=== PATIENT | female | born 1985 | race Caucasian/White ===

== ENCOUNTER → 2017-09-07 | Outpatient (CLI) | payer BC, OTHER | END | disposition home or self-care (01) | LOC: LABWHC1 12:05 | PROVIDERS: ATTEND Obstetrics & Gynecology | DX: Z34.82 Encounter for supervision of other normal pregnancy, second trimester (principal); Z3A.00 Weeks of gestation of pregnancy not specified | CPT/HCPCS: 86850 ==

== ENCOUNTER 2017-09-17 15:56 | Emergency (ER) | payer BC, OTHER ==
[2017-09-17 16:28] VITALS: BP 119/57; PULSE 85; RESP 16; TEMP 98.2
--- NOTE | 2017-09-17 17:36 | ED ---
Female Urogenital HPI - General Chief complaint: Vaginal Bleeding Stated complaint: 15 weeks /Cramping Time Seen by Provider: 09/17/17 17:04 Source: patient Mode of arrival: ambulatory Limitations: no limitations - History of Present Illness Initial comments: This is a 31-year-old female who presents to the ED with a chief complaint of vaginal bleeding and cramping which began 2 weeks ago. The patient is A0 and 15 weeks . On 09/07/2017, the patient had an ultrasound and was given an injection of Rhogam. At this time, the exam revealed a healthy and the patient was told she had a minor tear in her cervix which is likely the cause of her spotting. The bleeding is slightly brown in color when the patient experiences the spotting. The patient states the cramping is in her lower abdomen and worse when sitting for long periods of time. - Related Data Home Medications Medication Instructions Recorded Confirmed Pnv,Calcium 72/Iron/Folic Acid 1 tab PO DAILY 07/20/17 09/17/17 [ Plus Tablet] Allergies Allergy/AdvReac Type Severity Reaction Status Date / Time No Known Allergies Allergy Verified 09/17/17 17:21 Review of Systems ROS Statement: Those systems with pertinent positive or pertinent negative responses have been documented in the HPI. ROS Other: All systems not noted in ROS Statement are negative. Past Medical History Past Medical History: Asthma History of Any Multi-Drug Resistant Organisms: None Reported Past Surgical History: No Surgical Hx Reported Past Psychological History: Bipolar, Depression Smoking Status: Current every day smoker Past Alcohol Use History: None Reported Past Drug Use History: None Reported General Exam Limitations: no limitations General appearance: alert, in no apparent distress Respiratory exam: Present: normal lung sounds bilaterally. Absent: respiratory distress, wheezes, rales, rhonchi, stridor Cardiovascular Exam: Present: regular rate, normal rhythm, normal heart sounds. Absent: systolic murmur, diastolic murmur, rubs, gallop, clicks GI/Abdominal exam: Present: soft, normal bowel sounds. Absent: distended, tenderness, guarding, rebound, rigid Back exam: Absent: CVA tenderness (R), CVA tenderness (L) Neurological exam: Present: alert, oriented X3, CN II-XII intact Psychiatric exam: Present: normal affect, normal mood Skin exam: Present: warm, dry, intact, normal color. Absent: rash Course Vital Signs 09/17/17 16:26 Temperature 98.2 F Pulse Rate 85 Respiratory 16 Rate Blood Pressure 119/57 O2 Sat by Pulse 98 Oximetry Medical Decision Making - Medical Decision Making 31-year-old female presented from for intermittent vaginal bleeding and . 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 Patient has no bleeding at this time. She did receive her broken shot at her last appointment. Patient had also urinalysis is which was within normal limits. We discussed pelvic rest, increase fluids urinalysis within normal limits and she is return for any worsening symptoms. heart tones were within normal limits. - Lab Data Lab Results 09/17/17 Range/Units 17:40 Urine Color Yellow Urine Appearance Cloudy H (Clear) Urine pH 5.0 (5.0-8.0) Ur Specific [place] 1.013 (1.001-1.035) Urine Protein Negative (Negative) Urine Glucose (UA) Negative (Negative) Urine Ketones Negative (Negative) Urine Blood Small H (Negative) Urine Nitrite Negative (Negative) Urine Bilirubin Negative (Negative) Urine Urobilinogen <2.0 (<2.0) mg/dL Ur Leukocyte Esterase Negative (Negative) Urine WBC 2 (0-5) /hpf Ur Squamous Epith Cells 6 H (0-4) /hpf Urine Bacteria Few H (None) /hpf Urine Mucus Moderate H (None) /hpf Disposition Clinical Impression: , Abdominal pain during Disposition: HOME SELF-CARE Instructions: Abdominal Pain in (ED) Additional Instructions: Please return to the Emergency Department if symptoms worsen or any other concerns. Referrals: Cassie Wilks MD [Primary Care Provider] - 1-2 days Time of Disposition: 18:45
[2017-09-17 17:49] LABS: Appearance,Urine Cloudy (Clear); Bacteria,Urine Few /hpf; Bilirubin,Urine Negative (Negative); Blood,Urine Small (Negative); Color,Urine Yellow; Glucose,Urine (UA) Negative (Negative); Ketones,Urine Negative (Negative); Leukocyte Esterase,Urine Negative (Negative); Mucus,Urine Moderate /hpf; Nitrite,Urine Negative (Negative); Protein,Urine Negative (Negative); Specific Gravity,Urine 1.013 (1.001-1.035); Squamous Epithelial Cell,Urine 6 /hpf (0-4); Urobilinogen,Urine <2.0 mg/dL (<2.0); WBC,Urine 2 /hpf (0-5)
== END 2017-09-17 19:00 | disposition home or self-care (01) ==
LOC: EC 15:56
DX: O26.892 Other specified pregnancy related conditions, second trimester (principal); R10.30 Lower abdominal pain, unspecified; O46.92 Antepartum hemorrhage, unspecified, second trimester; O99.332 Smoking (tobacco) complicating pregnancy, second trimester; F17.200 Nicotine dependence, unspecified, uncomplicated; Z3A.15 15 weeks gestation of pregnancy
CPT/HCPCS: 81001; 99284

== ENCOUNTER 2017-12-14 17:01 | Outpatient (CLI) | payer BC, OTHER ==
[2017-12-14 17:41] VITALS: BP 115/69; PULSE 87; RESP 18; TEMP 98.1
[2017-12-14 18:49] LABS: Amorphous Sediment,Urine Rare /hpf; Appearance,Urine Cloudy (Clear); Bacteria,Urine Few /hpf; Bilirubin,Urine Negative (Negative); Blood,Urine Negative (Negative); Color,Urine Light Yellow; Glucose,Urine (UA) Negative (Negative); Ketones,Urine Negative (Negative); Leukocyte Esterase,Urine Negative (Negative); Mucus,Urine Rare /hpf; Nitrite,Urine Negative (Negative); Protein,Urine Negative (Negative); RBC,Urine <1 /hpf (0-5); Specific Gravity,Urine 1.008 (1.001-1.035); Squamous Epithelial Cell,Urine 1 /hpf (0-4); Urobilinogen,Urine <2.0 mg/dL (<2.0); WBC,Urine 1 /hpf (0-5)
--- NOTE | 2017-12-20 07:58 | P.MSEPDOC ---
Presenting Problems - Arrival Data Date of Arrival on Unit: 12/14/17 Time of Arrival on Unit: 17:00 Mode of Transport: Ambulatory - Complaint OB-Reason for Admission/Chief Complaint: Other Comment: lower abd pains for three days. abd soft and without discomfort with palpation Medical History - Information : 2 Para: 1 Term: 1 : 0 Abortions: Spontaneous or Elective: 0 Number of Living Children: 1 - Gestational Age Gestational Age by NIHARIKA (wks/days): 28 Weeks and 6 Days Review of Systems - Review of Systems Constitutional: No problems Breast: No problems ENT: No problems Cardiovascular: No problems Respiratory: No problems Gastrointestinal: No problems Genitourinary: No problems Musculoskeletal: No problems Neurological: No problems Skin: No problems Vital Signs - Temperature Temperature: 98.1 F Temperature Source: Oral - Pulse Right Brachial Pulse Rate: 87 Pulse Assessment Method: Automatic Cuff - Respirations Respiratory Rate: 18 Oxygen Delivery Method: Room Air O2 Sat by Pulse Oximetry: 99 - Blood Pressure Right Arm Blood Pressure: 115/69 Blood Pressure Mean: 84 Blood Pressure Source: Automatic Cuff Medical Screen Scoring (Pre) - Cervical Exam Dilation: Exam Deferred Effacement: Exam Deferred Membranes: Intact - Uterine Contractions Frequency: N/A Duration: N/A Intensity: N/A - Maternal Vital Signs Maternal Temperature: N/A Maternal Blood Pressure: N/A Signs of Preeclampsia: N/A Maternal Respirations: N/A - Pain Assessment Pain Location and Character: Lower, Abdomen Pain Scale Used: Numeric (1 - 10) Pain Intensity: 3 Pain Management Goal: 4 Pain Description: *Acute Pain Frequency: Intermittent Pain Duration: 3 Pain Duration Units: Days Pain Behavior: None Exhibited, Vocalization Pain Aggravating Factors: Activity, Standing Non-Pharmacological Interventions: Darkened Room - Maternal Trauma Maternal Trauma: N/A - Assessment Baseline FHR: 150 Heart Rate - NICHD Category: Category I (Normal) = 0 Position: N/A Station: N/A - Total Score Total Score (Pre): 0 - Level of Risk Level of Risk: N/A Physician Notification (Pre) - Physician Notified Physician Notified Date: 12/14/17 Physician Notified Time: 17:44 Physician/Practitioner Notifed:: carla Spoke With: carla New Order Received: Yes - Notification Comment Comment: selam and ffn to send Medical Screen Scoring (Post) - Cervical Exam Dilation: 0 cm = 0 Effacement: Exam Deferred Membranes: Intact - Uterine Contractions Frequency: N/A Duration: N/A Intensity: N/A - Maternal Vital Signs Maternal Temperature: N/A Maternal Blood Pressure: N/A Signs of Preeclampsia: N/A Maternal Respirations: N/A - Pain Assessment Pain Location and Character: Abdomen - Maternal Trauma Maternal Trauma: N/A - Assessment Heart Rate: 145 Heart Rate - NICHD Category: Category I (Normal) = 0 NST: Reactive Position: N/A Station: N/A - Total Score Total Score (Post): 0 - Post Treatment Level of Risk Post Treatment Level of Risk: Low (0-5) Physician Notification (Post) - Physician Notified Physician Notified Date: 12/14/17 Physician Notified Time: 18:50 Physician/Practitioner Notified:: Carla Spoke With: Carla New Order Received: Yes (discharge order) Disposition - Disposition OB Disposition: Discharge to home Discharge Date: 12/14/17 Discharge Time: 18:55 I agree with the RN Medical Screening Exam: Yes Risk & Benefit of care provided described in d/c instruction: Yes Diagnosis: FALSE LABOR BEFORE 37 COMPLETED WEEKS OF GEST, SECOND TRI
== END 2017-12-14 18:55 | disposition home or self-care (01) ==
LOC: FBPOP 17:01
PROVIDERS: ATTEND Obstetrics & Gynecology
DX: O47.03 False labor before 37 completed weeks of gestation, third trimester (principal); Z3A.28 28 weeks gestation of pregnancy
CPT/HCPCS: 59025; 81001; 82731; 99213

== ENCOUNTER 2017-12-23 23:39 | Emergency (ER) | payer BC, OTHER ==
[2017-12-24 01:19] LABS: Basophils % (A) 0 %; Eosinophils # (A) 0.1 k/uL (0-0.7); Eosinophils % (A) 1 %; HCT 37.4 % (34.0-46.0); HGB 12.8 gm/dL (11.4-16.0); Lymphocytes # (A) 2.1 k/uL (1.0-4.8); Lymphocytes % (A) 21 %; MCH 28.2 pg (25.0-35.0); MCHC 34.2 g/dL (31.0-37.0); MCV 82.3 fL (80.0-100.0); Mean Platelet Volume 7.2; Monocytes # (A) 0.6 k/uL (0-1.0); Monocytes % (A) 6 %; Neutrophils # (A) 7.2 k/uL (1.3-7.7); Neutrophils % (A) 71 %; Platelet Count 273 k/uL (150-450); RBC 4.54 m/uL (3.80-5.40); RDW 13.7 % (11.5-15.5); WBC 10.1 k/uL (3.8-10.6)
[2017-12-24 01:21] LABS: Amorphous Sediment,Urine Rare /hpf; Appearance,Urine Cloudy (Clear); Bacteria,Urine Few /hpf; Bilirubin,Urine Negative (Negative); Blood,Urine Negative (Negative); Color,Urine Yellow; Glucose,Urine (UA) Negative (Negative); Ketones,Urine Negative (Negative); Leukocyte Esterase,Urine Negative (Negative); Mucus,Urine Rare /hpf; Nitrite,Urine Negative (Negative); PH, Urine 6.5 (5.0-8.0); Protein,Urine Negative (Negative); Squamous Epithelial Cell,Urine 1 /hpf (0-4); Urobilinogen,Urine <2.0 mg/dL (<2.0); WBC,Urine 1 /hpf (0-5)
[2017-12-24 01:27] LABS: ALT 17 U/L (9-52); AST 14 U/L (14-36); Albumin 3.1 g/dL (3.5-5.0); Alkaline Phosphatase 105 U/L (38-126); Anion Gap 13 mmol/L; Blood Urea Nitrogen 6 mg/dL (7-17); Calcium 9.5 mg/dL (8.4-10.2); Carbon Dioxide 20 mmol/L (22-30); Chloride 107 mmol/L (98-107); Glucose 116 mg/dL (74-99); Potassium 3.4 mmol/L (3.5-5.1); Sodium 140 mmol/L (137-145); Total Bilirubin 0.2 mg/dL (0.2-1.3); Total Protein 5.6 g/dL (6.3-8.2)
[2017-12-24 01:33] LABS: INR 0.9 (<1.2); Prothrombin Time 9.4 sec (9.0-12.0)
[2017-12-24 01:39] LABS: Partial Thromboplastin Time 21.8 sec (22.0-30.0)
[2017-12-24 01:40] LABS: Creatine Kinase 56 U/L (30-135)
[2017-12-24 01:52] LABS: Creatine Kinase MB 0.8 ng/mL (0.0-2.4); Troponin I <0.012 ng/mL (0.000-0.034)
--- NOTE | 2017-12-24 01:59 | XR ---
EXAM: XR Chest, 2 Views CLINICAL HISTORY: ITS.REASON XR Reason: Pain TECHNIQUE: Frontal and lateral views of the chest. COMPARISON: No relevant prior studies available. FINDINGS: Lungs: Unremarkable. No consolidation. Pleural space: Unremarkable. No pneumothorax. Heart: Unremarkable. No cardiomegaly. Mediastinum: Unremarkable. Bones/joints: Unremarkable. IMPRESSION: Normal chest x-rays.
--- NOTE | 2017-12-24 02:18 | ED ---
SOB HPI - General Chief Complaint: Shortness of Breath Stated Complaint: PARVIN, 30 weeks preg Time Seen by Provider: 12/24/17 00:15 Source: patient Mode of arrival: ambulatory Limitations: no limitations - History of Present Illness Initial Comments: 32-year-old female patient presents to the emergency department today for evaluation of shortness of breath. Patient states this started a couple of days ago. She states that she did see her doctor and was given an inhaler, states that this did not seem to help. Patient is 30 weeks with her second child. She is . Patient denies any cough or congestion. Denies any wheezing. Patient states that the shortness of breath gets worse with activity. Patient states that she tries to switch positions without relief. Patient denies any history of similar symptoms. She denies any recent long car rides. Denies any calf pain or leg swelling. She states that her chest does feel tight. She is not having abdominal pain, vaginal bleeding, or vaginal discharge. States she is feeling normal movement. Patient denies any recent rash, fever, chills, nausea, vomiting, diarrhea, constipation, back pain , numbness, tingling, dizziness, weakness, hematuria, dysuria, urinary urgency, urinary frequency, headache, visual changes, or any other complaints. - Related Data Home Medications Medication Instructions Recorded Confirmed Pnv,Calcium 72/Iron/Folic Acid 1 tab PO DAILY 07/20/17 12/14/17 [ Plus Tablet] Acetaminophen [Tylenol] 325 mg PO Q4H 12/14/17 12/14/17 Albuterol Inhaler [Ventolin Hfa 1 - 2 puff INHALATION Q6HR PRN 12/14/17 12/14/17 Inhaler] Calcium Carbonate [Tums] 500 mg PO TID 12/14/17 12/14/17 Allergies Allergy/AdvReac Type Severity Reaction Status Date / Time No Known Allergies Allergy Verified 12/23/17 23:42 Review of Systems ROS Statement: Those systems with pertinent positive or pertinent negative responses have been documented in the HPI. ROS Other: All systems not noted in ROS Statement are negative. Past Medical History Past Medical History: Asthma History of Any Multi-Drug Resistant Organisms: None Reported Past Surgical History: No Surgical Hx Reported Past Psychological History: Bipolar, Depression Smoking Status: Former smoker Past Alcohol Use History: None Reported Past Drug Use History: None Reported General Exam Limitations: no limitations General appearance: alert, in no apparent distress, other (This is a well- developed, well-nourished adult female patient in no acute distress. Vital signs upon presentation are temperature 98.3F, pulse 93, respirations 28, blood pressure 113/68, pulse ox 100% on room air.) Eye exam: Present: normal appearance, PERRL, EOMI. Absent: scleral icterus, conjunctival injection, periorbital swelling ENT exam: Present: normal exam, normal oropharynx, mucous membranes moist Respiratory exam: Present: normal lung sounds bilaterally, other (Patient does appear to be short of breath, has to take deep breaths after each sentence. Becomes more short of breath with ambulation.). Absent: respiratory distress, wheezes, rales, rhonchi, stridor Cardiovascular Exam: Present: regular rate, normal rhythm, normal heart sounds. Absent: systolic murmur, diastolic murmur, rubs, gallop, clicks GI/Abdominal exam: Present: soft, normal bowel sounds, other (Gravid abdomen). Absent: distended, tenderness, guarding, rebound, rigid Extremities exam: Present: normal inspection, full ROM, normal capillary refill , other (Bilateral lower extremities are pink, warm, and dry. Cap refills less than 3 seconds. Pedal posttibial pulses are 2+ and equal bilaterally. No evidence of edema. No calf tenderness.). Absent: tenderness, pedal edema, joint swelling, calf tenderness Neurological exam: Present: alert, oriented X3, CN II-XII intact Psychiatric exam: Present: normal affect, normal mood Skin exam: Present: warm, dry, intact, normal color. Absent: rash Course Vital Signs 12/23/17 12/24/17 12/24/17 23:40 00:17 02:40 Temperature 98.3 F Pulse Rate 93 85 Respiratory 28 H 20 18 Rate Blood Pressure 113/68 139/72 O2 Sat by Pulse 100 99 Oximetry 12/24/17 12/24/17 12/24/17 03:39 03:47 04:22 Temperature 97.2 F L Pulse Rate 88 88 97 Respiratory 18 Rate Blood Pressure 129/71 O2 Sat by Pulse 98 Oximetry Medical Decision Making - Medical Decision Making 32-year-old female patient presented to the emergency department today for complaints of shortness of breath especially with activity. Patient's 30 weeks . heart tones are normal in the 150s. Patient does have good movement. Had no abdominal complaints. Lungs are clear to auscultation with good air movement. Chest x-ray was clear. Patient no leg swelling or calf tenderness however we did perform ultrasound Doppler to rule out DVT. Vital signs are stable. Oxygen 100% on room air. Labs did reveal mildly decreased potassium level of 3.4. We'll replace this. Magnesium is 1.7. Patient is feeling somewhat better after receiving a breathing treatment of albuterol. Patient does have an albuterol inhaler at home. History of asthma. Did discuss as was a possibility for her symptoms. Patient is instructed to follow-up with her primary care physician for recheck in 1-2 days. She is instructed to follow-up with her [employer]. Return parameters discussed in detail. She verbalizes understanding and agrees with this plan. - Lab Data Result diagrams: 12/24/17 01:05 12/24/17 01:05 Lab Results 12/24/17 12/24/17 12/24/17 Range/Units 01:05 01:05 01:05 WBC 10.1 (3.8-10.6) k/uL RBC 4.54 (3.80-5.40) m/uL Hgb 12.8 (11.4-16.0) gm/dL Hct 37.4 (34.0-46.0) % MCV 82.3 (80.0-100.0) fL MCH 28.2 (25.0-35.0) pg MCHC 34.2 (31.0-37.0) g/dL RDW 13.7 (11.5-15.5) % Plt Count 273 (150-450) k/uL Neutrophils % 71 % Lymphocytes % 21 % Monocytes % 6 % Eosinophils % 1 % Basophils % 0 % Neutrophils # 7.2 (1.3-7.7) k/uL Lymphocytes # 2.1 (1.0-4.8) k/uL Monocytes # 0.6 (0-1.0) k/uL Eosinophils # 0.1 (0-0.7) k/uL Basophils # 0.0 (0-0.2) k/uL PT (9.0-12.0) sec INR (<1.2) APTT (22.0-30.0) sec Sodium 140 (137-145) mmol/L Potassium 3.4 L (3.5-5.1) mmol/L Chloride 107 (98-107) mmol/L Carbon Dioxide 20 L (22-30) mmol/L Anion Gap 13 mmol/L BUN 6 L (7-17) mg/dL Creatinine 0.50 L (0.52-1.04) mg/dL Est GFR (CKD-EPI)AfAm >90 (>60 ml/min/1.73 sqM) Est GFR (CKD-EPI)NonAf >90 (>60 ml/min/1.73 sqM) Glucose 116 H (74-99) mg/dL Calcium 9.5 (8.4-10.2) mg/dL Magnesium (1.6-2.3) mg/dL Total Bilirubin 0.2 (0.2-1.3) mg/dL AST 14 (14-36) U/L ALT 17 (9-52) U/L Alkaline Phosphatase 105 (38-126) U/L Total Creatine Kinase 56 (30-135) U/L CK-MB (CK-2) 0.8 (0.0-2.4) ng/mL CK-MB (CK-2) Rel Index 1.4 Troponin I <0.012 (0.000-0.034) ng/mL Total Protein 5.6 L (6.3-8.2) g/dL Albumin 3.1 L (3.5-5.0) g/dL Urine Color Urine Appearance (Clear) Urine pH (5.0-8.0) Ur Specific [place] (1.001-1.035) Urine Protein (Negative) Urine Glucose (UA) (Negative) Urine Ketones (Negative) Urine Blood (Negative) Urine Nitrite (Negative) Urine Bilirubin (Negative) Urine Urobilinogen (<2.0) mg/dL Ur Leukocyte Esterase (Negative) Urine WBC (0-5) /hpf Ur Squamous Epith Cells (0-4) /hpf Amorphous Sediment (None) /hpf Urine Bacteria (None) /hpf Urine Mucus (None) /hpf 12/24/17 12/24/17 12/24/17 Range/Units 01:05 01:05 01:05 WBC (3.8-10.6) k/uL RBC (3.80-5.40) m/uL Hgb (11.4-16.0) gm/dL Hct (34.0-46.0) % MCV (80.0-100.0) fL MCH (25.0-35.0) pg MCHC (31.0-37.0) g/dL RDW (11.5-15.5) % Plt Count (150-450) k/uL Neutrophils % % Lymphocytes % % Monocytes % % Eosinophils % % Basophils % % Neutrophils # (1.3-7.7) k/uL Lymphocytes # (1.0-4.8) k/uL Monocytes # (0-1.0) k/uL Eosinophils # (0-0.7) k/uL Basophils # (0-0.2) k/uL PT 9.4 (9.0-12.0) sec INR 0.9 (<1.2) APTT 21.8 L (22.0-30.0) sec Sodium (137-145) mmol/L Potassium (3.5-5.1) mmol/L Chloride (98-107) mmol/L Carbon Dioxide (22-30) mmol/L Anion Gap mmol/L BUN (7-17) mg/dL Creatinine (0.52-1.04) mg/dL Est GFR (CKD-EPI)AfAm (>60 ml/min/1.73 sqM) Est GFR (CKD-EPI)NonAf (>60 ml/min/1.73 sqM) Glucose (74-99) mg/dL Calcium (8.4-10.2) mg/dL Magnesium 1.7 (1.6-2.3) mg/dL Total Bilirubin (0.2-1.3) mg/dL AST (14-36) U/L ALT (9-52) U/L Alkaline Phosphatase (38-126) U/L Total Creatine Kinase (30-135) U/L CK-MB (CK-2) (0.0-2.4) ng/mL CK-MB (CK-2) Rel Index Troponin I (0.000-0.034) ng/mL Total Protein (6.3-8.2) g/dL Albumin (3.5-5.0) g/dL Urine Color Yellow Urine Appearance Cloudy H (Clear) Urine pH 6.5 (5.0-8.0) Ur Specific [place] 1.010 (1.001-1.035) Urine Protein Negative (Negative) Urine Glucose (UA) Negative (Negative) Urine Ketones Negative (Negative) Urine Blood Negative (Negative) Urine Nitrite Negative (Negative) Urine Bilirubin Negative (Negative) Urine Urobilinogen <2.0 (<2.0) mg/dL Ur Leukocyte Esterase Negative (Negative) Urine WBC 1 (0-5) /hpf Ur Squamous Epith Cells 1 (0-4) /hpf Amorphous Sediment Rare H (None) /hpf Urine Bacteria Few H (None) /hpf Urine Mucus Rare H (None) /hpf - EKG Data -: EKG Interpreted by Nv EKG Comments: EKG shows normal sinus rhythm with a ventricular rate of 90, ND interval 132, QRS duration 96, QT 368, QTC 450. No evidence of ST elevation or depression. - Radiology Data Radiology results: report reviewed, image reviewed Two-view x-ray of the chest is obtained. Report was reviewed in its entirety. Impression by Dr. Tejada shows normal chest x-ray. Ultrasound venous Doppler duplex of the bilateral lower extremities was obtained. Report was reviewed in its entirety. Impression by Dr. Tejada shows normal bilateral lower extremity duplex venous ultrasound. Disposition Clinical Impression: Shortness of breath Disposition: HOME SELF-CARE Condition: Good Instructions: Dyspnea (ED) Additional Instructions: Follow-up through primary care physician and her [employer]OPE [employer] as soon as possible. Return here immediately for any new, worsening, or concerning symptoms. Is patient prescribed a controlled substance at d/c from ED?: No Referrals: Yomi Aguirre DO [Primary Care Provider] - 1-2 days Time of Disposition: 04:12
[2017-12-24 02:41] VITALS: RESP 18
--- NOTE | 2017-12-24 03:10 | US ---
EXAM: US Duplex Bilateral Lower Extremity Veins CLINICAL HISTORY: Its. reason US Reason: Pain TECHNIQUE: Real-time duplex ultrasound scan of the bilateral lower extremity veins integrating B-mode two-dimensional vascular structure, Doppler spectral analysis, color flow Doppler imaging and compression. COMPARISON: No relevant prior studies available. FINDINGS: Right deep veins: Unremarkable. No DVT in the right common femoral, femoral, proximal deep femoral or popliteal veins. The veins demonstrate normal color flow, are normally compressible, with normal phasic flow and/or augmentation response. Right superficial veins: Unremarkable. No thrombus in the visualized right great saphenous vein. Left deep veins: Unremarkable. No DVT in the left common femoral, femoral, proximal deep femoral or popliteal veins. The veins demonstrate normal color flow, are normally compressible, with normal phasic flow and/or augmentation response. Left superficial veins: Unremarkable. No thrombus in the visualized left great saphenous vein. Soft tissues: No acute findings. No popliteal cyst. IMPRESSION: Normal bilateral lower extremity duplex venous ultrasound.
[2017-12-24] MEDS ORDERED: ALBUTEROL NEBULIZED 2.5 MG/3 ML INHALATION STA (03:32)
[2017-12-24] MEDS ORDERED: POTASSIUM CHLORIDE ER 20 MEQ TAB.ER PO STA (03:44)
[2017-12-24 04:23] VITALS: BP 129/71; PULSE 97; TEMP 97.2
== END 2017-12-24 04:23 | disposition home or self-care (01) ==
LOC: EC 23:39
DX: O99.89 Other specified diseases and conditions complicating pregnancy, childbirth and the puerperium (principal); R06.02 Shortness of breath; R07.89 Other chest pain; O99.283 Endocrine, nutritional and metabolic diseases complicating pregnancy, third trimester; E87.6 Hypokalemia; O99.513 Diseases of the respiratory system complicating pregnancy, third trimester; J45.909 Unspecified asthma, uncomplicated; Z3A.30 30 weeks gestation of pregnancy; Z87.891 Personal history of nicotine dependence; Z79.899 Other long term (current) drug therapy
CPT/HCPCS: 36415; 71046; 80053; 81001; 82550; 82553; 83735; 84484; 85025; 85610; 85730; 93005; 93970; 94640; 99285

== ENCOUNTER 2018-01-26 19:41 | Outpatient (CLI) | payer BC, OTHER ==
[2018-01-26 20:57] VITALS: BP 123/78; PULSE 99; RESP 16; TEMP 97
--- NOTE | 2018-01-26 21:29 | P.MSEPDOC ---
Presenting Problems - Arrival Data Date of Arrival on Unit: 01/26/18 Time of Arrival on Unit: 19:00 Mode of Transport: Ambulatory - Complaint OB-Reason for Admission/Chief Complaint: PIH Medical History - Information : 2 Para: 1 Term: 1 : 0 Abortions: Spontaneous or Elective: 0 Number of Living Children: 1 - Gestational Age Gestational Age by NIHARIKA (wks/days): 35 Weeks and 0 Days Review of Systems - Review of Systems Constitutional: No problems Breast: No problems ENT: No problems Cardiovascular: No problems Respiratory: No problems Gastrointestinal: No problems Genitourinary: No problems Musculoskeletal: No problems Neurological: No problems Skin: No problems Vital Signs - Temperature Temperature: 97.0 F Temperature Source: Oral - Pulse Standing Pulse Rate: 99 Pulse Assessment Method: Palpation - Respirations Respiratory Rate: 16 Oxygen Delivery Method: Room Air - Blood Pressure Right Arm Blood Pressure: 123/78 Blood Pressure Mean: 93 Blood Pressure Source: Automatic Cuff Medical Screen Scoring (Pre) - Cervical Exam Dilation: Exam Deferred - Uterine Contractions Frequency: N/A - Maternal Vital Signs Maternal Temperature: N/A Maternal Blood Pressure: N/A Signs of Preeclampsia: Headache = 1 - Maternal Trauma Maternal Trauma: N/A - Assessment Baseline FHR: 140 Heart Rate - NICHD Category: Category I (Normal) = 0 - Total Score Total Score (Pre): 1 Physician Notification (Pre) - Physician Notified Physician Notified Date: 01/26/18 Physician Notified Time: 21:01 Physician/Practitioner Notifed:: dr steffanie Moraes Order Received: Yes Medical Screen Scoring (Post) - Cervical Exam Dilation: Exam Deferred - Uterine Contractions Frequency: N/A - Maternal Vital Signs Maternal Temperature: N/A Maternal Blood Pressure: N/A Signs of Preeclampsia: Headache = 1 - Pain Assessment Pain Intensity: 0 Pain Management Goal: 0 Pain Radiation Location: 0 Pain Duration: 0 - Maternal Trauma Maternal Trauma: N/A - Assessment Heart Rate: 140 Heart Rate - NICHD Category: Category I (Normal) = 0 - Total Score Total Score (Post): 1 Physician Notification (Post) - Physician Notified Physician Notified Date: 01/26/18 Physician Notified Time: 20:57 Physician/Practitioner Notified:: dr steffanie oMraes Order Received: Yes - Notification Comment Comment: discharge home Disposition - Disposition OB Disposition: Discharge to home, Written follow up instructions reviewed Discharge Date: 01/26/18 Discharge Time: 20:57 I agree with the RN Medical Screening Exam: Yes Risk & Benefit of care provided described in d/c instruction: Yes Diagnosis: RELATED CONDITIONS, UNSPECIFIED, THIRD TRIMESTER
== END 2018-01-26 21:02 | disposition home or self-care (01) ==
LOC: FBPOP 19:41
PROVIDERS: ATTEND Obstetrics & Gynecology
DX: O26.93 Pregnancy related conditions, unspecified, third trimester (principal); Z3A.35 35 weeks gestation of pregnancy
CPT/HCPCS: 59025; 99215

== ENCOUNTER 2018-02-01 16:03 | Outpatient (CLI) | payer BC, OTHER ==
[2018-02-01 17:08] VITALS: PULSE 109; RESP 16; TEMP 97.5
--- NOTE | 2018-03-04 13:01 | P.MSEPDOC ---
Presenting Problems - Arrival Data Date of Arrival on Unit: 02/01/18 Time of Arrival on Unit: 16:00 Mode of Transport: Ambulatory Medical History - Information : 2 Para: 1 Term: 1 : 0 Abortions: Spontaneous or Elective: 0 Number of Living Children: 1 - Gestational Age Gestational Age by NIHARIKA (wks/days): 35 Weeks and 6 Days Vital Signs - Temperature Temperature: 97.5 F Temperature Source: Temporal Artery Scan - Pulse Supine Pulse Rate: 109 Pulse Assessment Method: Automatic Cuff - Respirations Respiratory Rate: 16 Oxygen Delivery Method: Room Air Medical Screen Scoring (Post) - Cervical Exam Dilation: 0 cm = 0 Membranes: Intact - Uterine Contractions Frequency: N/A - Maternal Vital Signs Maternal Temperature: N/A Signs of Preeclampsia: N/A Maternal Respirations: N/A - Pain Assessment Pain Scale Used: Numeric (1 - 10) Pain Intensity: 0 Pain Management Goal: 0 Pain Duration: 0 FLACC Face: No Expression/Smile = 0 FLACC Legs: Relaxed = 0 FLACC Activity: Lying Quietly = 0 FLACC Cry: No Cry = 0 FLACC Consolability: Content/Relaxed = 0 FLACC Pain Score: 0 - Assessment Heart Rate: 140 Heart Rate - NICHD Category: Category I (Normal) = 0 NST: Reactive Position: N/A - Total Score Total Score (Post): 0 - Post Treatment Level of Risk Post Treatment Level of Risk: N/A Physician Notification (Post) - Physician Notified Physician Notified Date: 02/01/18 Physician Notified Time: 17:08 Physician/Practitioner Notified:: dr diana New Order Received: Yes - Notification Comment Comment: pt to be discharged home Disposition - Disposition OB Disposition: Discharge to home Discharge Date: 02/01/18 Discharge Time: 17:08 I agree with the RN Medical Screening Exam: Yes Risk & Benefit of care provided described in d/c instruction: Yes Diagnosis: FALSE LABOR BEFORE 37 COMPLETED WEEKS OF GEST, THIRD TRI
== END 2018-02-01 17:10 | disposition home or self-care (01) ==
LOC: FBPOP 16:03
PROVIDERS: ATTEND Obstetrics & Gynecology
DX: O47.03 False labor before 37 completed weeks of gestation, third trimester (principal); Z3A.35 35 weeks gestation of pregnancy
CPT/HCPCS: 59025; 99213

== ENCOUNTER 2018-02-24 05:59 | Inpatient (IN) | payer BC, OTHER ==
[2018-02-23 13:06] VITALS: BMI 41.6
[2018-02-24] MEDS ORDERED: ceFAZolin IN SWFI 2 GM/20 ML SYRINGE IVP ONE (06:10)
[2018-02-24] MEDS ORDERED: CITRIC ACID-SODIUM CITRATE 15 ML CUP PO ONE (06:10)
[2018-02-24] MEDS ORDERED: LACTATED RINGERS 1,000 ML IV ONE (06:10)
[2018-02-24] MEDS ORDERED: LACTATED RINGERS 1,000 ML IV SCH (06:15)
[2018-02-24 06:29] LABS: Basophils % (A) 0 %; Eosinophils # (A) 0.1 k/uL (0-0.7); Eosinophils % (A) 1 %; HGB 12.9 gm/dL (11.4-16.0); Lymphocytes # (A) 1.8 k/uL (1.0-4.8); Lymphocytes % (A) 19 %; MCH 27.4 pg (25.0-35.0); MCHC 33.9 g/dL (31.0-37.0); MCV 80.7 fL (80.0-100.0); Mean Platelet Volume 6.7; Monocytes # (A) 0.7 k/uL (0-1.0); Monocytes % (A) 8 %; Neutrophils # (A) 6.6 k/uL (1.3-7.7); Neutrophils % (A) 71 %; Platelet Count 274 k/uL (150-450); RBC 4.71 m/uL (3.80-5.40); RDW 14.6 % (11.5-15.5); WBC 9.2 k/uL (3.8-10.6)
[2018-02-24] MEDS ORDERED: OXYTOCIN 10 UNIT/ML 1 ML VIAL ONE (07:50)
[2018-02-24] MEDS ORDERED: MORPHINE SULFATE (PF) 0.3 MG/0.3 ML SYR ONE (07:50)
[2018-02-24] MEDS ORDERED: KETOROLAC 30 MG/ML 1 ML VIAL ONE (07:50)
[2018-02-24] MEDS ORDERED: ePHEDrine SULFATE/0.9% NACL/PF 50 MG/5 ML SYRINGE IV ONE (07:50)
[2018-02-24] MEDS ORDERED: NALOXONE 0.4 MG/ML 1 ML VIAL IV PRN (09:12)
[2018-02-24] MEDS ORDERED: ONDANSETRON 4 MG/2 ML VIAL IVP PRN (09:12)
[2018-02-24] MEDS ORDERED: ACETAMINOPHEN TAB 325 MG TAB PO PRN (09:12)
[2018-02-24] MEDS ORDERED: diphenhydrAMINE 50 MG/ML 1 ML VIAL IVP PRN ×2 (09:12)
[2018-02-24] MEDS ORDERED: METOCLOPRAMIDE 5 MG/ML 2 ML VIAL IVP PRN (09:12)
[2018-02-24] MEDS ORDERED: SIMETHICONE 80 MG CHEWABLE PO PRN (09:12)
[2018-02-24] MEDS ORDERED: ZOLPIDEM 5 MG TAB PO PRN (09:12)
[2018-02-24] MEDS ORDERED: diphenhydrAMINE 50 MG CAP PO PRN (09:12)
[2018-02-24] MEDS ORDERED: diphenhydrAMINE 25 MG CAP PO PRN (09:12)
[2018-02-24] MEDS ORDERED: MEASLES-MUMPS-RUBELLA VACC/PF 12,500 UNIT/0.5 ML VIAL SQ ONE (09:12)
[2018-02-24] MEDS: LACTATED RINGERS 1,000 ML IV SCH ×2 (10:35→16:31)
--- NOTE | 2018-02-24 12:40 | P.HPOB ---
History of Present Illness H&P Date: 02/24/18 Chief Complaint: IUP term: macrosomia IUP at 39 weeks diagnosed with macromia. after long discussion of r/b/a primary c/s vs. attempt vaginal delivery she has opted for c/s with tubaligation. all questions answered. Her course was complicated by failure of a 1 hour but passed her 3 her Glucola screen. She did have some peripheral edema while she was working but this resolved when she sat down or lay down. Pertinent labs include O- blood type Rh and was negative. Rubella immune. Hepatitis B surface antigen RPR and HIV were all negative. Past Medical History Past Medical History: Asthma Additional Past Medical History / Comment(s): HEARTBURN DURING . History of Any Multi-Drug Resistant Organisms: None Reported Past Surgical History: No Surgical Hx Reported Additional Past Anesthesia/Blood Transfusion Reaction / Comment(s): NO PREVIOUS ANESTHESIA Past Psychological History: ADD/ADHD, Anxiety, Bipolar, Depression, Panic Disorder Smoking Status: Former smoker Past Alcohol Use History: None Reported Additional Past Alcohol Use History / Comment(s): SMOKED AGE 17-31, 1 PK Q2 DAYS Past Drug Use History: None Reported - Past Family History Mother Family Medical History: No Reported History Medications and Allergies Home Medications Medication Instructions Recorded Confirmed Type Albuterol Inhaler [Ventolin Hfa 1 - 2 puff INHALATION Q6HR PRN 12/14/17 History Inhaler] Calcium Carbonate [Tums] 500 mg PO TID 12/14/17 02/24/18 History Allergies Allergy/AdvReac Type Severity Reaction Status Date / Time No Known Allergies Allergy Verified 02/24/18 06:10 Exam Osteopathic Statement: *. No significant issues noted on an osteopathic structural exam other than those noted in the History and Physical/Consult. Vital Signs Temp Pulse Resp BP Pulse Ox 02/24/18 10:45 96.6 F L 100 18 124/64 98 02/24/18 10:15 96.2 F L 98 18 101/58 100 02/24/18 09:45 96.5 F L 89 18 109/56 100 02/24/18 09:30 96.7 F L 96 18 105/52 100 02/24/18 09:15 98 18 99/51 99 02/24/18 09:00 96.6 F L 105 H 18 113/57 99 02/24/18 08:45 96.9 F L 98 18 117/56 02/24/18 06:06 97.7 F 102 H 16 117/69 98 Intake and Output 02/23/18 02/24/18 02/24/18 22:59 06:59 14:59 Output Total 1100 Balance -1100 Output: Urine 500 Estimated Blood Loss 600 Other: # Emeses 1 Weight 106.594 kg Results Result Diagrams: 02/24/18 06:16
--- NOTE | 2018-02-24 12:43 | P.OP ---
Date of Procedure: 02/24/18 Preoperative Diagnosis: Intrauterine at term: Macrosomia: Family planning Postoperative Diagnosis: Same Procedure(s) Performed: Primary low transverse section with bilateral partial salpingectomy Anesthesia: spinal Surgeon: Yomi Aguirre Small Business Director #1: Dominique Bonilla Estimated Blood Loss (ml): 600 IV fluids (ml): 1,000 Urine output (ml): 200 Pathology: none sent Condition: stable Disposition: floor Operative Findings: Male scores of 9 and 9 at one and 5 minutes respectively and the weight was 9 lbs. 8 oz. Description of Procedure: Patient was taken to the operating suite where a general anesthetic was found be adequate. She was prepped and draped in the normal sterile fashion placed in dorsal supine position with leftward tilt. Initially a Pfannenstiel skin incision was made, and this incision was then carried through to the underlying layer of the fashion with second knife. Fascia was then nicked in the midline and this opening was extended laterally with Mercer scissors. Superior and inferior aspect of this incision were then grasped tented up and bluntly and sharply dissected off the rectus muscles. Rectus muscles were then divided in the midline and blunt dissection through the peritoneum was made. This opening was then extended superiorly and inferiorly with good visualization of both bowel bladder with Metzenbaum scissors. Bladder blade was then placed. Bladder flap was identified and entered sharply with Metzenbaum scissors. This opening was extended across the face of the uterus and then bluntly dissected out of the operative field. Knife was then used to incise the uterus. This opening was fully developed with hemostat and then extended bluntly. Head was then atraumatically delivered followed by the anterior and posterior shoulders. Nuchal cord 1 was noted and easily reduced. Remainder the baby was delivered and mouth nares were bulb suctioned. Umbilical cord was clamped cut usual fashion an nursery personnel was present to assume care. Placenta was then delivered intact Pitocin was added to the IV. Uterus was then exteriorized cleared of clots and debris and closed in 1 layer with 0 Vicryl suture. Once excellent hemostasis was obtained attention was turned to the fallopian tubes where a hemostat was placed 2 cm from uterine cornu on both the right and left hand side. Window was then created in the mesosalpinx and 2 proximal and 2 distal 2-0 silk sutures were placed with the intervening segment excised and tips cauterized. Left and debris was then suctioned posterior cul- de-sac and the uterus was reinserted into the abdomen. Reinspection fallopian tubes showed hemostasis. Peritoneal layer was then identified and reapproximated with 0 Vicryl suture. Fascial layer was then closed with 0 Vicryl suture. One layer of 3-0 Vicryl was placed in the deep subcuticular tissues to reapproximate the skin. Skin was then closed with 3-0 Vicryl. Sponge, lap, needle counts were all correct 2. Patient was then taken to the recovery room in stable and satisfactory condition.
[2018-02-24] MEDS: KETOROLAC 30 MG/ML 1 ML VIAL IVP PRN (22:10)
[2018-02-24] MEDS: SENNOSIDES-DOCUSATE SODIUM 1 EACH TAB PO SCH (22:11)
[2018-02-25] MEDS: KETOROLAC 30 MG/ML 1 ML VIAL IVP PRN (03:24)
[2018-02-25 09:01] LABS: Basophils % (A) 0 %; Eosinophils # (A) 0.1 k/uL (0-0.7); Eosinophils % (A) 1 %; HCT 35.4 % (34.0-46.0); HGB 11.7 gm/dL (11.4-16.0); Lymphocytes # (A) 1.3 k/uL (1.0-4.8); Lymphocytes % (A) 16 %; MCH 27.5 pg (25.0-35.0); MCHC 33.1 g/dL (31.0-37.0); MCV 83.1 fL (80.0-100.0); Mean Platelet Volume 6.6; Monocytes # (A) 0.5 k/uL (0-1.0); Monocytes % (A) 6 %; Neutrophils # (A) 6.3 k/uL (1.3-7.7); Neutrophils % (A) 75 %; Platelet Count 246 k/uL (150-450); RBC 4.26 m/uL (3.80-5.40); RDW 14.7 % (11.5-15.5); WBC 8.4 k/uL (3.8-10.6)
--- NOTE | 2018-02-25 09:30 | P.PNOBGPC ---
Subjective - Subjective Principal diagnosis: Postop day 1 Interval history: Overall doing well. Tolerating diet, voiding, and she is passing flatus Patient reports: Reports appetite normal, Reports voiding normally, Reports pain well controlled, Reports ambulating normally : doing well Objective - Vital Signs Latest vital signs: Vital Signs Temp Pulse Resp BP Pulse Ox 02/25/18 08:00 97.9 F 86 16 92/71 98 02/25/18 04:00 98.0 F 89 18 131/72 02/25/18 00:00 98.0 F 96 16 103/70 02/24/18 20:07 97.5 F L 86 18 106/75 02/24/18 16:00 97.6 F 49 L 16 117/63 02/24/18 12:00 98.2 F 92 16 115/66 98 02/24/18 10:45 96.6 F L 100 18 124/64 98 02/24/18 10:15 96.2 F L 98 18 101/58 100 02/24/18 09:45 96.5 F L 89 18 109/56 100 Intake and Output 02/24/18 02/25/18 02/25/18 22:59 06:59 14:59 Intake Total 10 Output Total 700 1350 Balance -700 -1340 Intake: IV 10 Invasive Line 1 10 Output: Urine 700 1350 Uretheral (Liang) 350 Other: # Voids 1 1 - Exam Lungs: bilateral: normal Chest: Normal S1, Normal S2 Extremities: Present: normal Abdomen: Present: normal appearance, soft. Absent: distention, tenderness Incision: Present: normal, dry, intact Uterus: Present: normal, firm
[2018-02-25] MEDS: SENNOSIDES-DOCUSATE SODIUM 1 EACH TAB PO SCH ×2 (09:47→21:28)
[2018-02-25] MEDS: IBUPROFEN 600 MG TAB PO PRN ×3 (09:48→21:01)
--- NOTE | 2018-02-25 12:52 | P.PN ---
Progress Note - Text Progress Note Date: 02/25/18 32-year-old female status post section postop day #1 with Duramorph spinal. She has no complaints. No motor deficits, no sensory deficits, no pruritus. Tolerating diet well and ambulating. Okay for discharge from an anesthetic standpoint
[2018-02-25] MEDS: HYDROcodone/APAP 5-325MG 1 EACH TAB PO PRN ×3 (13:28→23:14)
[2018-02-25] MEDS: LACTATED RINGERS 1,000 ML IV SCH ×2 (17:35→21:22)
[2018-02-26] MEDS: HYDROcodone/APAP 5-325MG 1 EACH TAB PO PRN ×2 (06:04→10:07)
[2018-02-26] MEDS: SENNOSIDES-DOCUSATE SODIUM 1 EACH TAB PO SCH (07:52)
[2018-02-26] MEDS: IBUPROFEN 600 MG TAB PO PRN (07:52)
[2018-02-26 08:57] VITALS: BP 122/80; PULSE 83; RESP 16; TEMP 98
--- NOTE | 2018-02-26 09:08 | P.DS ---
Providers Date of admission: 02/24/18 05:59 Expected date of discharge: 02/26/18 Attending physician: Yomi Aguirre [facility] Course: Patient is doing very well postop day 2 from the primary section. She is ambulating, voiding, and she is tolerating her diet. She voices no complaint. Vital signs are stable and afebrile. Heart regular, lungs clear, extremities without pain. Abdomen is soft uterus is firm. Incision is clean dry and intact. Assessment postop day 2. Plan discharged home follow up with me in 1 week. Prescription for narcotic pain reliever as well as Motrin and a breast pump were provided. Discharge instructions were thoroughly reviewed and all questions are answered for her prior to her discharge. She is stable for discharge this time. Patient Condition at Discharge: Good Plan - Discharge Summary New Discharge Prescriptions: New HYDROcodone/APAP 5-325MG [[place] 5-325] 1 tab PO Q4HR PRN #30 tab PRN Reason: Pain Ibuprofen [Motrin] 600 mg PO Q6HR PRN #30 tab PRN Reason: Pain No Action Calcium Carbonate [Tums] 500 mg PO TID Albuterol Inhaler [Ventolin Hfa Inhaler] 1 - 2 puff INHALATION Q6HR PRN PRN Reason: asthma Discharge Medication List Albuterol Inhaler [Ventolin Hfa Inhaler] 1 - 2 puff INHALATION Q6HR PRN [History] Calcium Carbonate [Tums] 500 mg PO TID 12/14/17 [History] HYDROcodone/APAP 5-325MG [[place] 5-325] 1 tab PO Q4HR PRN #30 tab 02/26/18 [Rx] Ibuprofen [Motrin] 600 mg PO Q6HR PRN #30 tab 02/26/18 [Rx] Follow up Appointment(s)/Referral(s): Yomi Aguirre DO [Doctor of Osteopathic Medicine] - 1 Week Activity/Diet/Wound Care/Special Instructions: No heavy lifting, limit stairs and driving, and pelvic rest. If any high temperatures, heavy bleeding, or severe pain call my office Discharge Disposition: HOME SELF-CARE
== END 2018-02-26 11:53 | disposition home or self-care (01) | DRG 766 ==
LOC: 4FBP 05:59
PROVIDERS: ADMIT Obstetrics & Gynecology; ATTEND Obstetrics & Gynecology
PROC: 0UB70ZZ Excision of Bilateral Fallopian Tubes, Open Approach (ICD-10-PCS; 2018-02-24)
PROC: 10D00Z1 Extraction of Products of Conception, Low, Open Approach (ICD-10-PCS; principal; 2018-02-24 08:00)
DX: O36.63X0 Maternal care for excessive fetal growth, third trimester, not applicable or unspecified (principal); O99.344 Other mental disorders complicating childbirth; F32.9 Major depressive disorder, single episode, unspecified; F41.0 Panic disorder [episodic paroxysmal anxiety]; F90.9 Attention-deficit hyperactivity disorder, unspecified type; O99.52 Diseases of the respiratory system complicating childbirth; J45.909 Unspecified asthma, uncomplicated; O69.81X0 Labor and delivery complicated by cord around neck, without compression, not applicable or unspecified; Z37.0 Single live birth; Z3A.39 39 weeks gestation of pregnancy; Z87.891 Personal history of nicotine dependence
CPT/HCPCS: 85025; 86850; 86900; 86901; 88302

== ENCOUNTER 2019-04-06 18:32 | Emergency (ER) | payer BC, OTHER ==
--- NOTE | 2019-04-06 19:42 | ED ---
Abdominal Pain HPI - General Chief Complaint: Abdominal Pain Stated Complaint: Arm swelling Time Seen by Provider: 04/06/19 18:34 Source: patient, RN notes reviewed Mode of arrival: ambulatory Limitations: no limitations - History of Present Illness Initial Comments: 33-year-old female presents emergency Department with chief complaint right arm pain. Patient was sent from urgent care to rule out DVT. Patient donated blood yesterday states that she immediately had bruising, swelling. I do feel this is related to hematoma though she has some pain radiating up into her right axilla. Patient also states she has some urinary symptoms and mild abdominal discomfort denies any vaginal bleeding vaginal discharge denies any chance patient denies any flank pain, diarrhea constipation no other complaints. - Related Data Home Medications Medication Instructions Recorded Confirmed Albuterol Inhaler [Ventolin Hfa 1 - 2 puff INHALATION RT-QID PRN 12/14/17 04/06/19 Inhaler] Sertraline [Zoloft] 50 mg PO DAILY 04/06/19 04/06/19 Allergies Allergy/AdvReac Type Severity Reaction Status Date / Time No Known Allergies Allergy Verified 04/06/19 18:49 Review of Systems ROS Statement: Those systems with pertinent positive or pertinent negative responses have been documented in the HPI. ROS Other: All systems not noted in ROS Statement are negative. Past Medical History Past Medical History: Asthma Additional Past Medical History / Comment(s): HEARTBURN DURING . History of Any Multi-Drug Resistant Organisms: None Reported Past Surgical History: No Surgical Hx Reported Additional Past Anesthesia/Blood Transfusion Reaction / Comment(s): NO PREVIOUS ANESTHESIA Past Psychological History: ADD/ADHD, Anxiety, Bipolar, Depression, Panic Disorder Smoking Status: Former smoker Past Alcohol Use History: None Reported Past Drug Use History: None Reported - Past Family History Mother Family Medical History: No Reported History General Exam Limitations: no limitations General appearance: alert, in no apparent distress Head exam: Present: atraumatic, normocephalic, normal inspection ENT exam: Present: normal exam, mucous membranes moist Neck exam: Present: normal inspection, full ROM. Absent: tenderness, meningismus, lymphadenopathy Respiratory exam: Present: normal lung sounds bilaterally. Absent: respiratory distress, wheezes, rales, rhonchi, stridor Cardiovascular Exam: Present: regular rate, normal rhythm, normal heart sounds. Absent: systolic murmur, diastolic murmur, rubs, gallop, clicks GI/Abdominal exam: Present: soft, normal bowel sounds. Absent: distended, tenderness, guarding, rebound, rigid Extremities exam: Present: other (Right antecubital fossa region on the medial aspect there is moderate swelling and tenderness with palpation neurovascular intact upper extremity capillary Refill less than 2 seconds) Back exam: Absent: CVA tenderness (R), CVA tenderness (L) Skin exam: Present: warm, dry, intact, normal color. Absent: rash Course Vital Signs 04/06/19 04/06/19 18:35 19:50 Temperature 98.4 F 98 F Pulse Rate 90 84 Respiratory 20 18 Rate Blood Pressure 127/86 129/89 O2 Sat by Pulse 97 97 Oximetry Medical Decision Making - Medical Decision Making 33-year-old female presented from it for right arm pain and swelling. This relates a hematoma from blood donation. Patient has no evidence of DVT she was sent here to rule out. Patient also complained of intermittent abdominal discomfort which she is not tender has a localized pain to symptoms urinalysis was performed and is negative. she has a history of ovarian cysts most likely related. patient be discharged return parameters were discussed. - Lab Data Lab Results 04/06/19 04/06/19 Range/Units 19:30 19:30 Urine Color Light Yellow Urine Appearance Clear (Clear) Urine pH 5.5 (5.0-8.0) Ur Specific [place] 1.008 (1.001-1.035) Urine Protein Negative (Negative) Urine Glucose (UA) Negative (Negative) Urine Ketones Negative (Negative) Urine Blood Negative (Negative) Urine Nitrite Negative (Negative) Urine Bilirubin Negative (Negative) Urine Urobilinogen <2.0 (<2.0) mg/dL Ur Leukocyte Esterase Negative (Negative) Urine HCG, Qual Not Detected (Not Detectd) Disposition Clinical Impression: Traumatic hematoma of right upper arm Disposition: HOME SELF-CARE Condition: Stable Instructions (If sedation given, give patient instructions): Hematoma (ED) Additional Instructions: Please return to the Emergency Department if symptoms worsen or any other concerns. Is patient prescribed a controlled substance at d/c from ED?: No Referrals: Paul Singer DO [Primary Care Provider] - 1-2 days Time of Disposition: 21:20
[2019-04-06 19:48] LABS: Appearance,Urine Clear (Clear); Bilirubin,Urine Negative (Negative); Blood,Urine Negative (Negative); Color,Urine Light Yellow; Glucose,Urine (UA) Negative (Negative); Ketones,Urine Negative (Negative); Leukocyte Esterase,Urine Negative (Negative); Nitrite,Urine Negative (Negative); PH, Urine 5.5 (5.0-8.0); Protein,Urine Negative (Negative); Specific Gravity,Urine 1.008 (1.001-1.035); Urobilinogen,Urine <2.0 mg/dL (<2.0)
[2019-04-06 19:51] VITALS: RESP 18; TEMP 98
--- NOTE | 2019-04-06 21:15 | US ---
EXAM: US Right Upper Extremity Non-Vascular, Complete CLINICAL HISTORY: ITS.REASON US Reason: Pain swelling TECHNIQUE: Real-time ultrasound scan of the right upper extremity with image documentation. COMPARISON: No relevant prior studies available. FINDINGS: Right Arm: No evidence of DVT in veins imaged in right arm. Unable to visualize ulnar veins. Cannot rule out DVT in ulnar veins. No mass or adenopathy. IMPRESSION: No DVT.
[2019-04-06 21:34] VITALS: BP 142/88; PULSE 86
== END 2019-04-06 21:33 | disposition home or self-care (01) ==
LOC: EC 18:32
DX: S40.021A Contusion of right upper arm, initial encounter (principal); R10.9 Unspecified abdominal pain; J45.909 Unspecified asthma, uncomplicated; F41.9 Anxiety disorder, unspecified; F41.0 Panic disorder [episodic paroxysmal anxiety]; F90.9 Attention-deficit hyperactivity disorder, unspecified type; Z79.51 Long term (current) use of inhaled steroids; Z87.891 Personal history of nicotine dependence; Z87.42 Personal history of other diseases of the female genital tract; Z79.899 Other long term (current) drug therapy; W46.0XXA Contact with hypodermic needle, initial encounter
CPT/HCPCS: 81003; 81025; 99284

== ENCOUNTER 2019-06-02 18:02 | Emergency (ER) | payer BC, OTHER ==
[2019-06-02] MEDS ORDERED: SODIUM CHLORIDE 0.9% 1,000 ML IV STA (18:53)
[2019-06-02] MEDS ORDERED: KETOROLAC 30 MG/ML 1 ML VIAL IVP STA (18:53)
[2019-06-02] MEDS ORDERED: ONDANSETRON 4 MG/2 ML VIAL IVP STA (18:53)
--- NOTE | 2019-06-02 19:36 | ED ---
General Adult HPI - General Chief complaint: Abdominal Pain Stated complaint: Abd pain Time Seen by Provider: 06/02/19 18:53 Source: patient, RN notes reviewed Mode of arrival: ambulatory Limitations: no limitations - History of Present Illness Initial comments: 33-year-old female with a past medical history of GERD, asthma, cholecystectomy presents to the emergency department for a chief complaint of right lower quadrant pain. Patient states this has been ongoing since yesterday. States it is a sharp pain in nature. Patient states she has had a few episodes of diarrhea and has had nausea as well. Denies vomiting. Patient states she had a low-grade fever of 100.0 at home. Patient has no other complaints at this time including shortness of breath, chest pain, vomiting, headache, or visual changes. - Related Data Home Medications Medication Instructions Recorded Confirmed Albuterol Inhaler [Ventolin Hfa 1 - 2 puff INHALATION RT-QID PRN 12/14/17 04/06/19 Inhaler] Sertraline [Zoloft] 50 mg PO DAILY 04/06/19 04/06/19 Allergies Allergy/AdvReac Type Severity Reaction Status Date / Time No Known Allergies Allergy Verified 04/06/19 18:49 Review of Systems ROS Statement: Those systems with pertinent positive or pertinent negative responses have been documented in the HPI. ROS Other: All systems not noted in ROS Statement are negative. Past Medical History Past Medical History: Asthma Additional Past Medical History / Comment(s): HEARTBURN DURING . History of Any Multi-Drug Resistant Organisms: None Reported Past Surgical History: No Surgical Hx Reported, Cholecystectomy Additional Past Anesthesia/Blood Transfusion Reaction / Comment(s): NO PREVIOUS ANESTHESIA Past Psychological History: ADD/ADHD, Anxiety, Bipolar, Depression, Panic Disorder Smoking Status: Former smoker Past Alcohol Use History: None Reported Past Drug Use History: None Reported - Past Family History Mother Family Medical History: No Reported History General Exam Limitations: no limitations General appearance: alert, in no apparent distress Head exam: Present: atraumatic, normocephalic, normal inspection Eye exam: Present: normal appearance, PERRL, EOMI. Absent: scleral icterus, conjunctival injection, periorbital swelling ENT exam: Present: normal exam, mucous membranes moist Neck exam: Present: normal inspection, full ROM. Absent: tenderness, meningismus, lymphadenopathy Respiratory exam: Present: normal lung sounds bilaterally. Absent: respiratory distress, wheezes, rales, rhonchi, stridor Cardiovascular Exam: Present: regular rate, normal rhythm, normal heart sounds. Absent: systolic murmur, diastolic murmur, rubs, gallop, clicks GI/Abdominal exam: Present: soft, tenderness (RLQ tenderness), normal bowel sounds. Absent: distended, guarding, rebound, rigid Expanded GI/Abdominal exam: Present: tenderness at McBurney's Point. Absent: psoas sign, obturator sign, heel tap sign, Mitchell's sign, Rovsing's sign Course Vital Signs 06/02/19 18:09 Temperature 98.5 F Pulse Rate 64 Respiratory 20 Rate Blood Pressure 103/68 O2 Sat by Pulse 96 Oximetry Medical Decision Making - Medical Decision Making Those are stable. Patient is afebrile. Exam reveals right lower quadrant tenderness around McBurney point. She does have associated nausea and diarrhea, pain is likely GI in nature.. CBC CMP and urinalysis are unremarkable. White blood cell count is normal. CT abdomen and pelvis shows sigmoid diverticulosis without diverticulitis. The appendix appears normal. No sign of acute abdomen or pelvis. Patient was given pain medication and is feeling much better. Patient is stable for discharge home. Recommended she follow up with primary care in 1-2 days. Recommended she return if she has any worsening symptoms. - Lab Data Result diagrams: 06/02/19 19:35 06/02/19 19:35 Lab Results 06/02/19 06/02/19 06/02/19 Range/Units 19:35 19:35 19:35 WBC 7.1 (3.8-10.6) k/uL RBC 5.40 (3.80-5.40) m/uL Hgb 15.4 (11.4-16.0) gm/dL Hct 46.6 H (34.0-46.0) % MCV 86.2 (80.0-100.0) fL MCH 28.5 (25.0-35.0) pg MCHC 33.0 (31.0-37.0) g/dL RDW 12.9 (11.5-15.5) % Plt Count 309 (150-450) k/uL Neutrophils % 66 % Lymphocytes % 26 % Monocytes % 4 % Eosinophils % 1 % Basophils % 1 % Neutrophils # 4.7 (1.3-7.7) k/uL Lymphocytes # 1.9 (1.0-4.8) k/uL Monocytes # 0.3 (0-1.0) k/uL Eosinophils # 0.1 (0-0.7) k/uL Basophils # 0.1 (0-0.2) k/uL Sodium 139 (137-145) mmol/L Potassium 4.2 (3.5-5.1) mmol/L Chloride 103 (98-107) mmol/L Carbon Dioxide 24 (22-30) mmol/L Anion Gap 12 mmol/L BUN 10 (7-17) mg/dL Creatinine 0.74 (0.52-1.04) mg/dL Est GFR (CKD-EPI)AfAm >90 (>60 ml/min/1.73 sqM) Est GFR (CKD-EPI)NonAf >90 (>60 ml/min/1.73 sqM) Glucose 90 (74-99) mg/dL Calcium 9.8 (8.4-10.2) mg/dL Total Bilirubin 0.4 (0.2-1.3) mg/dL AST 27 (14-36) U/L ALT 30 (9-52) U/L Alkaline Phosphatase 112 (38-126) U/L Total Protein 8.0 (6.3-8.2) g/dL Albumin 4.8 (3.5-5.0) g/dL Amylase 59 (30-110) U/L Lipase 91 (23-300) U/L Urine Color Yellow Urine Appearance Cloudy H (Clear) Urine pH 5.5 (5.0-8.0) Ur Specific [place] 1.019 (1.001-1.035) Urine Protein Negative (Negative) Urine Glucose (UA) Negative (Negative) Urine Ketones Negative (Negative) Urine Blood Trace H (Negative) Urine Nitrite Negative (Negative) Urine Bilirubin Negative (Negative) Urine Urobilinogen <2.0 (<2.0) mg/dL Ur Leukocyte Esterase Negative (Negative) Urine RBC 1 (0-5) /hpf Ur Squamous Epith Cells 9 H (0-4) /hpf Urine Mucus Few H (None) /hpf Urine Sperm Occasional H (None) /hpf Urine HCG, Qual (Not Detectd) 06/02/19 Range/Units 19:35 WBC (3.8-10.6) k/uL RBC (3.80-5.40) m/uL Hgb (11.4-16.0) gm/dL Hct (34.0-46.0) % MCV (80.0-100.0) fL MCH (25.0-35.0) pg MCHC (31.0-37.0) g/dL RDW (11.5-15.5) % Plt Count (150-450) k/uL Neutrophils % % Lymphocytes % % Monocytes % % Eosinophils % % Basophils % % Neutrophils # (1.3-7.7) k/uL Lymphocytes # (1.0-4.8) k/uL Monocytes # (0-1.0) k/uL Eosinophils # (0-0.7) k/uL Basophils # (0-0.2) k/uL Sodium (137-145) mmol/L Potassium (3.5-5.1) mmol/L Chloride (98-107) mmol/L Carbon Dioxide (22-30) mmol/L Anion Gap mmol/L BUN (7-17) mg/dL Creatinine (0.52-1.04) mg/dL Est GFR (CKD-EPI)AfAm (>60 ml/min/1.73 sqM) Est GFR (CKD-EPI)NonAf (>60 ml/min/1.73 sqM) Glucose (74-99) mg/dL Calcium (8.4-10.2) mg/dL Total Bilirubin (0.2-1.3) mg/dL AST (14-36) U/L ALT (9-52) U/L Alkaline Phosphatase (38-126) U/L Total Protein (6.3-8.2) g/dL Albumin (3.5-5.0) g/dL Amylase (30-110) U/L Lipase (23-300) U/L Urine Color Urine Appearance (Clear) Urine pH (5.0-8.0) Ur Specific [place] (1.001-1.035) Urine Protein (Negative) Urine Glucose (UA) (Negative) Urine Ketones (Negative) Urine Blood (Negative) Urine Nitrite (Negative) Urine Bilirubin (Negative) Urine Urobilinogen (<2.0) mg/dL Ur Leukocyte Esterase (Negative) Urine RBC (0-5) /hpf Ur Squamous Epith Cells (0-4) /hpf Urine Mucus (None) /hpf Urine Sperm (None) /hpf Urine HCG, Qual Not Detected (Not Detectd) Disposition Clinical Impression: Diarrhea, Colon spasm Disposition: HOME SELF-CARE Condition: Good Instructions (If sedation given, give patient instructions): Acute Abdominal Pain (ED) Additional Instructions: Please take Motrin and Tylenol for pain. Please follow-up with primary care in 1-2 days. If you have any worsening symptoms return to the emergency d epartment. Is patient prescribed a controlled substance at d/c from ED?: No Referrals: Paul Singer DO [Primary Care Provider] - 1-2 days Time of Disposition: 21:16
[2019-06-02 19:56] LABS: Basophils # (A) 0.1 k/uL (0-0.2); Basophils % (A) 1 %; Eosinophils # (A) 0.1 k/uL (0-0.7); Eosinophils % (A) 1 %; HCT 46.6 % (34.0-46.0); HGB 15.4 gm/dL (11.4-16.0); Lymphocytes # (A) 1.9 k/uL (1.0-4.8); Lymphocytes % (A) 26 %; MCH 28.5 pg (25.0-35.0); MCV 86.2 fL (80.0-100.0); Monocytes # (A) 0.3 k/uL (0-1.0); Monocytes % (A) 4 %; Neutrophils # (A) 4.7 k/uL (1.3-7.7); Neutrophils % (A) 66 %; Platelet Count 309 k/uL (150-450); RDW 12.9 % (11.5-15.5); WBC 7.1 k/uL (3.8-10.6)
[2019-06-02 19:58] LABS: Appearance,Urine Cloudy (Clear); Bilirubin,Urine Negative (Negative); Blood,Urine Trace (Negative); Color,Urine Yellow; Glucose,Urine (UA) Negative (Negative); Ketones,Urine Negative (Negative); Leukocyte Esterase,Urine Negative (Negative); Mucus,Urine Few /hpf; Nitrite,Urine Negative (Negative); PH, Urine 5.5 (5.0-8.0); Protein,Urine Negative (Negative); RBC,Urine 1 /hpf (0-5); Specific Gravity,Urine 1.019 (1.001-1.035); Sperm,Urine Occasional /hpf; Squamous Epithelial Cell,Urine 9 /hpf (0-4); Urobilinogen,Urine <2.0 mg/dL (<2.0)
[2019-06-02 20:04] LABS: ALT 30 U/L (9-52); AST 27 U/L (14-36); African American GFR (CKD) >90 (>60 ml/min/1.73 sqM); Albumin 4.8 g/dL (3.5-5.0); Alkaline Phosphatase 112 U/L (38-126); Amylase 59 U/L (30-110); Anion Gap 12 mmol/L; Blood Urea Nitrogen 10 mg/dL (7-17); Calcium 9.8 mg/dL (8.4-10.2); Carbon Dioxide 24 mmol/L (22-30); Chloride 103 mmol/L (98-107); Glucose 90 mg/dL (74-99); Potassium 4.2 mmol/L (3.5-5.1); Sodium 139 mmol/L (137-145); Total Bilirubin 0.4 mg/dL (0.2-1.3)
--- NOTE | 2019-06-02 20:49 | CT ---
EXAMINATION TYPE: CT abdomen pelvis w con DATE OF EXAM: 06/02/2019 COMPARISON: None HISTORY: Sharp RLQ pain CT DLP: 2101.9 mGycm Automated exposure control for dose reduction was used. TECHNIQUE: Helical acquisition of images was performed from the lung bases through the pelvis. CONTRAST: Performed without Oral Contrast and with IV Contrast, patient injected with 100 mL of Isovue 300. FINDINGS: Lung bases are clear. There is no pleural effusion. Heart size is normal. Liver spleen pancreas gallbladder appear normal. Bile ducts are not dilated. There is no adrenal mass. Stomach appears normal. Kidneys show satisfactory contrast opacification. T here is no hydronephrosis. There is no retroperitoneal adenopathy. Ureters are not dilated. There is broad-based umbilical hernia that contains fat. There are multiple sigmoid diverticula. Bladder diste nds smoothly. There is no inguinal hernia. There is no free fluid in the pelvis. Uterus is retroverted. The appendi x appears normal. There is no evidence of a bowel obstruction. There is no mesenteric edema. There is no free air. Lumbar vertebra have normal alignment. There is no compression fracture. Bony pelvis appears intact. IMPRESSION: THERE IS SIGMOID DIVERTICULOSIS WITHOUT DIVERTICULITIS. THERE IS MILD DIFFUSE COLONIC DIVERTICULOSIS. NORMAL APPENDIX. NO SIGN OF ACUTE ABDOMEN AND PELVIS.
[2019-06-02 21:46] VITALS: BP 127/94; PULSE 66; RESP 18; TEMP 98
[2019-06-05 14:13] LABS: N. gonorrhoeae,PCR Negative (Neg,Equiv); Neisseria Source Urine
[2019-06-05 14:18] LABS: C. trachomatis,PCR Negative (Neg,Equiv); Chlamydia trachomatis Source Urine
== END 2019-06-02 21:46 | disposition home or self-care (01) ==
LOC: EC 18:02
DX: K58.9 Irritable bowel syndrome, unspecified (principal); K57.30 Diverticulosis of large intestine without perforation or abscess without bleeding; J45.909 Unspecified asthma, uncomplicated; F41.9 Anxiety disorder, unspecified; F32.9 Major depressive disorder, single episode, unspecified; Z90.49 Acquired absence of other specified parts of digestive tract; Z87.19 Personal history of other diseases of the digestive system; Z87.891 Personal history of nicotine dependence; Z79.899 Other long term (current) drug therapy
CPT/HCPCS: 99284; 96374; 96375; 36415; 80053; 82150; 83690; 85025; 81001; 81025; 87491; 87591; 74177; J2405; J1885; Q9967

== ENCOUNTER 2019-07-05 23:37 | Emergency (ER) | payer BC, OTHER ==
[2019-07-05] MEDS ORDERED: SODIUM CHLORIDE 0.9% 1,000 ML IV STA (23:58)
[2019-07-05] MEDS ORDERED: DICYCLOMINE 10 MG/ML 2 ML AMP IM STA (23:58)
[2019-07-05] MEDS ORDERED: PANTOPRAZOLE 40 MG/10 ML VIAL IVP STA (23:58)
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
[2019-07-06 00:27] LABS: Appearance,Urine Clear (Clear); Bilirubin,Urine Negative (Negative); Blood,Urine Negative (Negative); Color,Urine Light Yellow; Glucose,Urine (UA) Negative (Negative); Ketones,Urine Negative (Negative); Leukocyte Esterase,Urine Negative (Negative); Nitrite,Urine Negative (Negative); Protein,Urine Negative (Negative); Specific Gravity,Urine 1.006 (1.001-1.035); Urobilinogen,Urine <2.0 mg/dL (<2.0)
[2019-07-06 00:32] LABS: ALT 24 U/L (9-52); AST 21 U/L (14-36); African American GFR (CKD) >90 (>60 ml/min/1.73 sqM); Albumin 4.4 g/dL (3.5-5.0); Alkaline Phosphatase 103 U/L (38-126); Amylase 42 U/L (30-110); Anion Gap 10 mmol/L; Blood Urea Nitrogen 10 mg/dL (7-17); Calcium 9.5 mg/dL (8.4-10.2); Carbon Dioxide 24 mmol/L (22-30); Chloride 104 mmol/L (98-107); Glucose 109 mg/dL (74-99); Non-African American GFR(CKD) >90 (>60 ml/min/1.73 sqM); Potassium 3.6 mmol/L (3.5-5.1); Sodium 138 mmol/L (137-145); Total Bilirubin 0.4 mg/dL (0.2-1.3); Total Protein 7.3 g/dL (6.3-8.2)
[2019-07-06 00:34] LABS: Basophils % (A) 0 %; Eosinophils # (A) 0.1 k/uL (0-0.7); Eosinophils % (A) 1 %; HCT 41.8 % (34.0-46.0); HGB 14.6 gm/dL (11.4-16.0); Lymphocytes # (A) 1.6 k/uL (1.0-4.8); Lymphocytes % (A) 16 %; MCH 28.9 pg (25.0-35.0); MCHC 34.8 g/dL (31.0-37.0); Mean Platelet Volume 5.7; Monocytes # (A) 0.4 k/uL (0-1.0); Monocytes % (A) 4 %; Neutrophils # (A) 7.9 k/uL (1.3-7.7); Neutrophils % (A) 77 %; Platelet Count 251 k/uL (150-450); RBC 5.03 m/uL (3.80-5.40); RDW 12.8 % (11.5-15.5); WBC 10.2 k/uL (3.8-10.6)
[2019-07-06] MEDS ORDERED: KETOROLAC 30 MG/ML 1 ML VIAL IVP STA (00:59)
[2019-07-06 01:08] VITALS: RESP 17; TEMP 98.5
--- NOTE | 2019-07-06 01:16 | XR ---
EXAMINATION TYPE: XR KUB DATE OF EXAM: 07/06/2019 COMPARISON: NONE HISTORY: Abdominal pain TECHNIQUE: 2 views upright FINDINGS: Bowel gas pattern is normal. There is no sign of intestinal obstruction or pneumoperitoneum . Fecal pattern is normal. There is no sign of a mass. There are no pathologic calcifications over th e kidneys. Lung bases are clear. IMPRESSION: Nonacute abdomen.
[2019-07-06 02:14] VITALS: BP 129/57; PULSE 91
[2019-07-06] MEDS ORDERED: CYCLOBENZAPRINE 10MG STARTER 3 TAB BTL PO STA (02:14)
[2019-07-06] MEDS ORDERED: ONDANSETRON ODT 4 MG TAB PO STA (02:15)
== END 2019-07-06 02:18 | disposition home or self-care (01) ==
LOC: EC 23:37
DX: K52.9 Noninfective gastroenteritis and colitis, unspecified (principal); M54.5 Low back pain; M54.2 Cervicalgia; J02.9 Acute pharyngitis, unspecified; N93.9 Abnormal uterine and vaginal bleeding, unspecified; F41.9 Anxiety disorder, unspecified; F31.9 Bipolar disorder, unspecified; F41.0 Panic disorder [episodic paroxysmal anxiety]; J45.909 Unspecified asthma, uncomplicated; Z98.51 Tubal ligation status; Z87.891 Personal history of nicotine dependence; Z79.51 Long term (current) use of inhaled steroids; Z79.899 Other long term (current) drug therapy
CPT/HCPCS: 36415; 80053; 82150; 83690; 85025; 81003; 74018; 99284; 96374; 96375; 96372; 96361 ×2; J0500; J1885; C9113